=== PATIENT | female | born 1995 | race Two or more races ===

== ENCOUNTER 2022-03-24 05:45 | Emergency (ER) | payer OTHER ==
[~2022-03-24] VITALS: Ht 147.3 cm; Wt 56.7 kg
[2022-03-24] MEDS ORDERED: DEPAKOTE ER250 MG PO (05:58)
== END 2022-03-24 11:25 | disposition left against medical advice (07) ==
LOC: ER 05:45
DX: Z53.21 Procedure and treatment not carried out due to patient leaving prior to being seen by health care provider (principal)